=== PATIENT | male | born 1995 | race African-American/Black ===

== ENCOUNTER 2020-02-24 00:35 | Emergency (ER) | payer SELFPAY ==
[~2020-02-24] VITALS: Ht 170.2 cm; Wt 67.0 kg
--- NOTE | 2020-02-24 01:34 | NUR ---
PT LEFT KNEE PLACED ON TOWELS, FOOT OF BED RAISED TO COMFORTABLE LEVEL. PT ATTACHED TO MONITOR. DENIES ANY FURTHER NEEDS OR CONCERNS, CALL LIGHT IN REACH.
--- NOTE | 2020-02-24 01:59 | NUR ---
REPORT TO ROCIO GARCIA.
[2020-02-24] MEDS ORDERED: KETOROLAC 60 MG/2 ML ONE (02:10)
[2020-02-24] MEDS ORDERED: KETOROLAC 60 MG/2 ML IM ONE (02:30)
[2020-02-24 03:30] VITALS: BP 124/74
== END 2020-02-24 03:32 | disposition home or self-care (01) ==
LOC: ED 02:35
DX: S83.92XA Sprain of unspecified site of left knee, initial encounter (principal); G89.11 Acute pain due to trauma; Z87.891 Personal history of nicotine dependence; W19.XXXA Unspecified fall, initial encounter; Y93.89 Activity, other specified; Y92.098 Other place in other non-institutional residence as the place of occurrence of the external cause; Y99.8 Other external cause status
CPT/HCPCS: 73564; 96372; 99283; J1885